=== PATIENT | female | born 2000 | race Caucasian/White ===

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

== ENCOUNTER 2020-10-03 19:16 | Emergency (ER) | payer OTHER ==
[~2020-10-03 19:16] MED LIST: CEFUROXIME500 MG PO; FEOSOL325 MG PO; GLUCOPHAGE1000 MG PO; GLUCOPHAGE500 MG PO; PRENATAL VITAM1 EAC8 PO; ZOFRAN ODT 4 MG4 MG PO; ZOFRAN4 MG PO
== END 2020-10-03 22:40 | disposition home or self-care (01) ==
LOC: ER1 19:16
DX: R06.00 Dyspnea, unspecified (principal); Z20.822 Contact with and (suspected) exposure to COVID-19
CPT/HCPCS: 99284; U0002

== ENCOUNTER 2021-08-31 23:54 | Emergency (ER) | payer MEDICAID ==
[2021-09-01 00:40] LABS: RED BLOOD COUNT 5.07 M/UL (4.00-5.10)
[2021-09-01 01:53] LABS: BUN/CREATININE RATIO 25 (0-10)
[2021-09-01] MEDS ORDERED: OMNICEF 300 MG300 MG PO (04:45)
[2021-09-01] MEDS ORDERED: ZOFRAN ODT 4 MG4 MG PO (04:45)
== END 2021-09-01 04:55 | disposition home or self-care (01) ==
LOC: ER1 23:54
PROVIDERS: Family Medicine
DX: N39.0 Urinary tract infection, site not specified (principal); Z90.89 Acquired absence of other organs
CPT/HCPCS: 80053; 81001; 83690; 84703; 85025; 96374; 99284; J0696; Q9967

== ENCOUNTER 2021-11-07 13:36 | Emergency (ER) | payer MEDICAID, OTHER ==
[~2021-11-07 13:36] MED LIST changes: +OMNICEF 300 MG300 MG PO
[2021-11-07 17:29] LABS: HEMOGLOBIN 13.3 gm/dl (12.3-15.3); RED BLOOD COUNT 4.75 M/UL (4.00-5.10); WHITE BLOOD COUNT 8.7 K/UL (4.5-11.0)
[2021-11-07 17:48] LABS: BUN/CREATININE RATIO 34 (0-10)
[2021-11-07] MEDS ORDERED: METFORMIN HCL500 M2 PO (18:25)
[2021-11-07] MEDS ORDERED: OMNICEF 300 MG300 MG PO (18:25)
== END 2021-11-07 18:34 | disposition home or self-care (01) ==
LOC: ER1 13:36
PROVIDERS: Emergency Medicine
DX: E11.65 Type 2 diabetes mellitus with hyperglycemia (principal)
CPT/HCPCS: 80053; 81001; 84703; 85025; 87077; 87086; 87186; 99284

== ENCOUNTER 2021-11-08 02:44 | Emergency (ER) | payer MEDICAID, OTHER ==
[~2021-11-08 02:44] MED LIST changes: +METFORMIN HCL500 M2 PO
== END 2021-11-08 03:40 | disposition home or self-care (01) ==
LOC: ER1 02:44
DX: E11.65 Type 2 diabetes mellitus with hyperglycemia (principal); Z79.84 Long term (current) use of oral hypoglycemic drugs
CPT/HCPCS: 99284; J2405